=== PATIENT | female | born 1980 | race Hispanic/Latino ===

== ENCOUNTER 2021-08-19 23:27 | Emergency (ER) | payer OTHER ==
[~2021-08-19] VITALS: Ht 154.9 cm; Wt 121.6 kg
[2021-08-20] MEDS ORDERED: ONDA4TAB4 PO (01:18)
[2021-08-20] MEDS ORDERED: IBUP-2070 PO (01:18)
[2021-08-20] MEDS ORDERED: ACET-66 PO (01:18)
[2021-08-20 01:30] VITALS: BP 126/70
== END 2021-08-20 01:32 | disposition home or self-care (01) ==
LOC: EDH 23:27
DX: U07.1 COVID-19 (principal); F17.200 Nicotine dependence, unspecified, uncomplicated; Z90.49 Acquired absence of other specified parts of digestive tract
CPT/HCPCS: 87635; 87804 ×2; 87880; 99283; C9803